=== PATIENT | female | born 1950 ===

== ENCOUNTER 2017-07-29 08:10 | Inpatient (IN) ==
[2017-07-23 23:52] LABS: Appearance,Urine HAZY; Bacteria,Urine MOD /hpf (0); Bilirubin,Urine NEG (NEG); Color,Urine YELLOW; Glucose,Urine (UA) NEGATIVE (NEG); Leukocyte Esterase,Urine 250 /uL (NEG); Mucus,Urine MOD /hpf (0); Nitrate,Urine NEG (NEG); Protein,Urine NEG (NEG); Specific Gravity,Urine 1.018 (1.000-1.035); Urine Blood NEG mg/dL (<0.03); Urine RBC 1 /hpf (0-1); Urine Squamous Epithelial Cell < 1 /hpf (0-4); Urine WBC 5 /hpf (0-4); Urobilinogen,Urine NEG (NEG)
[2017-07-24 02:08] LABS: Blood Urea Nitrogen 40 mg/dl (8-23)
[2017-07-24 11:43] LABS: Basophils # (Auto) 0 K/mcL (0.0-0.3); Basophils % (Auto) 0.5 % (0.0-2.0); Eosinophils # (Auto) 0.4 K/mcL (0.0-0.7); Eosinophils % (Auto) 5.5 % (0.0-7.0); Granulocytes % (Auto) 67.5 % (38.0-78.0); Lymphocytes # (Auto) 1.4 K/mcL (1.5-4.8); Lymphocytes % (Auto) 20.1 % (15.5-49.0); Mean Cell Volume 90.8 fL (80.0-100.0); Mean Corpuscular HGB Conc 33.5 g/dL (31.0-36.0); Mean Corpuscular Hemoglobin 30.4 pg (26.0-34.0); Monocytes # (Auto) 0.4 K/mcL (0.1-0.9); Monocytes % (Auto) 6.4 % (1.0-12.0); Platelet Count 260 K/mcL (140-440); RBC 3.98 M/mcL (4.00-5.20); Red Cell Distribution Width 14.4 % (11.5-14.5)
[~2017-07-29 08:10] MED LIST: ACETAMINOPHEN 500 MG TABLET PO SCH; CELECOXIB 200 MG CAPSULE PO SCH; KETOROLAC 30 MG, ROPIVACAINE HCL/PF 49.5 ML, EPINEPHrine 0.5 MG, 0.9 % SODIUM CHLORIDE ... IJ SCH; PREGABALIN 75 MG CAPSULE PO SCH; oxyCODONE 10 MG TAB.ER.12H PO SCH
[2017-07-29 10:17] LABS: Appearance,Urine CLEAR; Bilirubin,Urine NEG (NEG); Color,Urine STRAW; Glucose,Urine (UA) NEGATIVE (NEG); Leukocyte Esterase,Urine NEG /uL (NEG); Nitrate,Urine NEG (NEG); Protein,Urine NEG (NEG); Specific Gravity,Urine 1.014 (1.000-1.035); Urine Blood NEG mg/dL (<0.03); Urobilinogen,Urine NEG (NEG)
[2017-07-29] MEDS ORDERED: ceFAZolin 1 GM VIAL IV SCH (10:45)
[2017-07-29] MEDS ORDERED: ONDANSETRON 4 MG/2 ML VIAL IV ONE (11:39)
[2017-07-29] MEDS ORDERED: TRANEXAMIC ACID 1,000 MG/10 ML VIAL IV ONE (11:39)
[2017-07-29] MEDS ORDERED: MIDAZOLAM 5 MG/5 ML VIAL IV ONE (11:39)
[2017-07-29] MEDS ORDERED: KETAMINE 100 MG/ML ML IV ONE (11:39)
[2017-07-29] MEDS ORDERED: PROPOFOL 200 MG/20 ML VIAL IV ONE (11:39)
[2017-07-29] MEDS ORDERED: LIDOCAINE HCL/PF 100 MG/5 ML SYRINGE IV ONE (11:39)
[2017-07-29] MEDS ORDERED: ePHEDrine 50 MG/ML AMPUL IV ONE (11:39)
[2017-07-29] MEDS ORDERED: PHENYLEPHRINE 10 MG/ML VIAL IV ONE (11:39)
[2017-07-29] MEDS ORDERED: GLYCOPYRROLATE 0.2 MG/ML VIAL IV ONE (11:39)
[2017-07-29] MEDS ORDERED: GENTAMICIN SULFATE 800 MG/20 ML VIAL IR ONE (12:16)
[2017-07-29] MEDS ORDERED: ePHEDrine 50 MG/ML AMPUL IV PRN (12:37)
[2017-07-29] MEDS ORDERED: ONDANSETRON 4 MG/2 ML VIAL IV PRN (12:37)
[2017-07-29] MEDS ORDERED: IPRATROPIUM/ALBUTEROL 3 ML AMPUL.NEB NEB PRN (12:37)
[2017-07-29] MEDS ORDERED: MEPERIDINE 25 MG/ML SYRINGE IV PRN (12:37)
[2017-07-29] MEDS ORDERED: METHOCARBAMOL 1,000 MG/10 ML VIAL IV PRN (12:37)
[2017-07-29] MEDS ORDERED: PROMETHAZINE 25 MG/ML VIAL IV PRN (12:37)
[2017-07-29] MEDS ORDERED: LACTATED RINGERS 1,000 ML IV SCH (12:45)
[2017-07-29] MEDS ORDERED: TRANEXAMIC ACID 1,000 MG/10 ML VIAL IV SCH (13:24)
[2017-07-29] MEDS ORDERED: MAGNESIUM HYDROXIDE 30 ML ORAL.SUSP PO PRN (13:24)
[2017-07-29] MEDS ORDERED: BENZOCAINE/MENTHOL 1 LOZENGE PO PRN (13:24)
[2017-07-29] MEDS ORDERED: BISACODYL 10 MG SUPP.RECT PR PRN (13:24)
[2017-07-29] MEDS ORDERED: POLYETHYLENE GLYCOL 3350 17 GM PACKET PO PRN (13:24)
[2017-07-29] MEDS ORDERED: HYDROmorphone 2 MG/ML SYRINGE IV PRN (13:24)
[2017-07-29] MEDS ORDERED: FLEETS ADULT ENEMA PR PRN (13:24)
[2017-07-29] MEDS ORDERED: ACETAMINOPHEN 325 MG TABLET PO PRN (13:24)
[2017-07-29] MEDS: fentaNYL 100 MCG/2 ML VIAL IV PRN ×3 (14:02→14:07)
--- NOTE | 2017-07-29 14:03 | XRay Report ---
CLINICAL INFORMATION: Postsurgical follow-up TECHNIQUE: AP and lateral left knee COMPARISON: None. FINDINGS: Status post left total hemiarthroplasty. Femoral and tibial prosthetic complements are in anatomic positions. There is no surgical soft tissue and intra-articular gas IMPRESSION: Status post left total knee arthroplasty Interpreted and Authenticated by: Robert Bedoya 07/29/17
[2017-07-29] MEDS: 0.9 % SODIUM CHLORIDE 10 ML SYRINGE IV SCH ×2 (14:10→20:51)
[2017-07-29] MEDS: ONDANSETRON 4 MG/2 ML VIAL IV PRN ×2 (14:36→19:48)
[2017-07-29] MEDS: 0.45 % SODIUM CHLORIDE 1,000 ML IV SCH (14:37)
--- NOTE | 2017-07-29 14:45 | Brief Operative Note ---
Date of procedure: 07/29/17 Pre-op diagnosis: left knee djd severe Post-op diagnosis: same Procedure: left robotic tka Grafts/Implants: Yes Anesthesia: GETA Complications: none Complications Description: 07/29/17 14:44 none Surgeon: Rubio Potts Aircraft Part Assembler: Cayetano Sales Estimated blood loss (cc): 20 Tourniquet Time (Minutes): 45 Specimens Removed/Pathology: none sent Condition: stable Disposition: PACU
--- NOTE | 2017-07-29 15:13 | Operative Note ---
DATE OF OPERATION: 07/29/2017 PREOPERATIVE DIAGNOSIS: Left knee degenerative arthritis. POSTOPERATIVE DIAGNOSIS: Left knee degenerative arthritis. PROCEDURE: Left total knee arthroplasty using CAROLYN robot. SURGEON: Rubio Potts M.D. LEAD ACCOUNTANT: Cayetano Sales PA-C. ANESTHESIA: General LMA anesthesia. COMPLICATIONS: None. ESTIMATED BLOOD LOSS: Minimal. DESCRIPTION OF PROCEDURE: The patient was brought to the operating room and put to sleep with general LMA anesthesia. Once asleep, the patient had the left leg sterilely prepped and draped in the usual sterile fashion. Preop antibiotics given. Tranexamic acid given. After appropriate time out, we then proceeded with a midline incision. The leg was exsanguinated and tourniquet inflated to 250 pounds of pressure. Mid vastus approach was performed. Inspecting the knee showed severe arthritis of the medial compartment, lateral compartment and trochlear groove with bone exposed in all three areas With these findings, we proceeded with a total knee placing two pins above and below the knee. Placing the arrays, we centered the hip rotation, medial and lateral malleoli. Registered the pins intraarticularly and thirty points on the femur and tibia. We then balanced the knee with varus-valgus stress at 30 and 90 degrees. These were balanced using the robot and then once appropriately balanced, we then brought the robot in. This was registered. We mapped the cartilage anteriorly to help position, and we then made our distal femoral cut, our posterior femoral cut. Our chamfer cuts were then made and tibial cut, preserving the PCL. We then removed the bony fragments, placed a size 4 tibial baseplate which was set for rotation. This was punched into place. We prepared the femur. The femur was put into place, and we trialed an 11 mm poly. This seemed to balance very nicely with full range of motion. The patella was measured 23 mm in thickness. This was cut to 14 mm and a 332 mm patellar button was placed. A small chamfer cut made and all these components were cemented into place. We irrigated thoroughly and kept the knee still until all cement had been dried. Excess cement was then removed. We closed the mid vastus approach at 45 degrees with #1 Stratafix. The skin was closed with 2-0 Vicryl and adhesive closure. Sterile bandage applied. Tourniquet time was 45 minutes. RACHANA:teresa Job ID: [id number] Doc ID: [id number] Rubio Potts MD
[2017-07-29] MEDS: KETOROLAC 15 MG/ML VIAL IV SCH (17:38)
[2017-07-29] MEDS: ceFAZolin 1 GM VIAL IV SCH (19:15)
[2017-07-29] MEDS: ATORVASTATIN 20 MG TABLET PO SCH (20:50)
[2017-07-29] MEDS: SENNOSIDES 1 TABLET PO SCH (20:50)
[2017-07-29] MEDS: IMIPRAMINE 25 MG TABLET PO SCH (20:51)
[2017-07-29] MEDS: HYDROcodone/APAP 10/325MG TABLET PO PRN (20:51)
[2017-07-29] MEDS: DOCUSATE SODIUM 100 MG CAPSULE PO SCH (20:51)
[2017-07-29] MEDS: ASPIRIN 325 MG ENTERIC COATED TABLET PO SCH (20:51)
[2017-07-29] MEDS ORDERED: TEMAZEPAM 15 MG CAPSULE PO PRN (21:00)
[2017-07-30] MEDS: 0.45 % SODIUM CHLORIDE 1,000 ML IV SCH ×4 (00:40→21:03)
[2017-07-30] MEDS: KETOROLAC 15 MG/ML VIAL IV SCH ×5 (01:05→23:40)
[2017-07-30] MEDS: HYDROcodone/APAP 10/325MG TABLET PO PRN ×4 (01:46→14:22)
[2017-07-30] MEDS: ceFAZolin 1 GM VIAL IV SCH (03:24)
[2017-07-30] MEDS: 0.9 % SODIUM CHLORIDE 10 ML SYRINGE IV SCH ×3 (05:41→21:03)
--- NOTE | 2017-07-30 07:44 | Orthopedic Progress Note ---
Subjective Patient information: Note initiated : 07/30/17 at 7:43 am Service Date, if different from initiated Date: [] Patient: Christine Roth 67 y/o F admitted on 07/29/17 for Left Total Knee Arthroplasty Mike. Chief Complaint: [Pt is stable this morning on post operative day 1 without any significant concerns or complaints. Patients vital signs have remained stable. Patients dressing is dry and exhibits a grossly intact neurovascular and neuromotor exam. Patients 10 point ROS is otherwise negative. ] Objective Vital signs: Vital Signs Temp Pulse Resp BP Pulse Ox 07/30/17 07:25 96.9 F L 16 104/60 97 07/30/17 05:29 95 07/30/17 03:30 97.0 F 65 16 120/71 95 07/30/17 01:52 96 07/29/17 23:33 97.7 F 68 16 121/73 100 07/29/17 22:22 92 07/29/17 22:20 92 07/29/17 20:00 96.7 F L 69 14 135/81 100 07/29/17 17:15 123/75 94 07/29/17 16:40 95 07/29/17 16:15 133/73 96 07/29/17 15:45 122/72 94 07/29/17 15:15 113/69 96 07/29/17 15:00 110/67 99 07/29/17 14:45 113/67 98 07/29/17 14:30 96.9 F L 12 132/61 99 07/29/17 14:25 99 07/29/17 14:22 97.6 F 72 16 112/53 96 07/29/17 14:12 75 15 114/42 95 07/29/17 13:57 75 20 116/44 95 07/29/17 13:42 75 13 120/39 96 07/29/17 13:27 97.2 F 74 10 L 123/51 98 07/29/17 08:57 97.8 F 16 129/76 99 07/29/17 08:10 20 Intake and Output 07/29/17 07/30/17 07/30/17 21:59 05:59 13:59 Intake Total 890 / 890 1425 / 1425 Output Total 925 / 925 1100 / 1100 Balance -35 / -35 325 / 325 Intake: IV 1000 / 1000 Sodium Chloride 0.45% 1,000 ml 1000 / 1000 @ 100 mls/hr IV .Q10H FRED Rx#: [id number] Oral 690 / 690 425 / 425 IV - Manual Only 200 / 200 Output: Urine Catheter Amount 400 / 400 Void Amount 125 / 125 1100 / 1100 Emesis 400 / 400 Other: Meal Dinner Percent of Meal Consumed 75% Feeding Ability Independent # Voids 1 # Emeses 3 Weight 254 lb Intake & Output: Intake & Output 07/29/17 07/30/17 07/30/17 21:59 05:59 13:59 Intake Total 890 / 890 1425 / 1425 Output Total 925 / 925 1100 / 1100 Balance -35 / -35 325 / 325 Weight 254 lb Intake: IV 1000 / 1000 Sodium Chloride 0.45% 1,000 ml 1000 / 1000 @ 100 mls/hr IV .Q10H FRED Rx#: [id number] Oral 690 / 690 425 / 425 IV - Manual Only 200 / 200 Output: Urine Catheter Amount 400 / 400 Void Amount 125 / 125 1100 / 1100 Emesis 400 / 400 Other: Meal Dinner Percent of Meal Consumed 75% Feeding Ability Independent # Voids 1 # Emeses 3 Incision: Yes healing Incision clean and dry: Yes Dressing: Yes clean Weight bearing status: full Neurological exam IM: Yes motor sensory intact, Yes neurovascular intact Extremities exam IM: Yes Foot pink and warm, Yes neurovascular intact - Labs CBC & BMP: 07/30/17 04:55 07/23/17 15:58 Labs: Orthopedic Labs 07/23/17 15:58 PT 13.2 INR 1.0 APTT 29 07/30/17 07/23/17 04:55 15:58 Hgb 12.1 Hct 29.5 L 36.1 Assessment and Plan (1) Hx of total knee arthroplasty The patient has been educated regarding dressing care, Physical Therapy recommendations, home exercises, restrictions, and follow up appointments. The patient has had all necessary DME prescribed. The patient has remained stable during their hospital course. The patient was discharge with a stable exam. The patient has been educated regarding dressing care, Physical Therapy recommendations, home exercises, restrictions, and follow up appointments. The patient has had all necessary DME prescribed. The patient has remained stable during their hospital course. The patient was discharge with a stable exam. Leave Dermabond patch intact until followup Status: Acute
--- NOTE | 2017-07-30 07:46 | Discharge Summary ---
Ortho Discharge - TKA - Patient Instructions Diet: Regular Diet Activity: activity as tolerated, weight bearing as tolerated Total Knee Protocol: For Total Knee: Start ROM JERI with stationary bike or rocking chair. Work on gaining full extension of knee. Posterior dislocation precautions provided. Hip abductor strengthening and gait training instructions provided. Apply Cryocuff as instructed. Dressing Care: May shower in 2 days Patient Education: Total Knee Replacement (DC) - Problem Maintenance (1) Hx of total knee arthroplasty Status: Acute - Follow Up Plan Follow Up Appointments: Rubio Potts MD [Physician] - 08/13/17 1:40 pm Disposition: Home, Self-Care Prognosis: Good Rehab Potential: Good I certify that the patient requires SNF services: No Overall status at discharge: patient is progressing back to baseline - Orders For Discharge Prescriptions: Aspirin [Ecotrin] 325 mg PO BID #60 tab.ec Docusate Sodium [Colace] 100 mg PO BID #60 cap HYDROcodone/APAP 10/325MG [Bruno 10/325Mg] 1 - 2 tab PO Q4HP PRN #75 tab PRN Reason: Pain Level 3-6
[2017-07-30] MEDS: metFORMIN 500 MG TAB.XL.24H PO SCH (07:54)
[2017-07-30] MEDS: SPIRONOLACTONE 25 MG TABLET PO SCH (08:51)
[2017-07-30] MEDS: PIOGLITAZONE 15 MG TABLET PO SCH (08:51)
[2017-07-30] MEDS: DOCUSATE SODIUM 100 MG CAPSULE PO SCH ×2 (08:52→21:01)
[2017-07-30] MEDS: ASPIRIN 325 MG ENTERIC COATED TABLET PO SCH ×2 (08:52→21:01)
[2017-07-30] MEDS: LOSARTAN 50 MG TABLET PO SCH (08:57)
[2017-07-30] MEDS: amLODIPine 5 MG TABLET PO SCH (08:58)
[2017-07-30] MEDS: BISOPROLOL 5 MG TABLET PO SCH (08:58)
[2017-07-30] MEDS: CLOPIDOGREL 75 MG TABLET PO SCH (08:58)
[2017-07-30] MEDS: CHLORTHALIDONE 25 MG TABLET PO SCH (08:58)
[2017-07-30] MEDS: IMIPRAMINE 25 MG TABLET PO SCH (21:01)
[2017-07-30] MEDS: ATORVASTATIN 20 MG TABLET PO SCH (21:01)
[2017-07-30] MEDS: SENNOSIDES 1 TABLET PO SCH (21:01)
[2017-07-31] MEDS: 0.45 % SODIUM CHLORIDE 1,000 ML IV SCH (04:40)
[2017-07-31] MEDS: HYDROcodone/APAP 10/325MG TABLET PO PRN ×2 (05:11→10:02)
[2017-07-31] MEDS: KETOROLAC 15 MG/ML VIAL IV SCH (05:11)
[2017-07-31] MEDS: 0.9 % SODIUM CHLORIDE 10 ML SYRINGE IV SCH (05:15)
[2017-07-31] MEDS: metFORMIN 500 MG TAB.XL.24H PO SCH (07:27)
[2017-07-31] MEDS: DOCUSATE SODIUM 100 MG CAPSULE PO SCH (09:52)
[2017-07-31] MEDS: CLOPIDOGREL 75 MG TABLET PO SCH (09:52)
[2017-07-31] MEDS: amLODIPine 5 MG TABLET PO SCH (09:52)
[2017-07-31] MEDS: ASPIRIN 325 MG ENTERIC COATED TABLET PO SCH (09:52)
[2017-07-31] MEDS: SPIRONOLACTONE 25 MG TABLET PO SCH (09:52)
[2017-07-31] MEDS: CHLORTHALIDONE 25 MG TABLET PO SCH (09:52)
[2017-07-31] MEDS: LOSARTAN 50 MG TABLET PO SCH (09:52)
[2017-07-31] MEDS: BISOPROLOL 5 MG TABLET PO SCH (09:52)
[2017-07-31] MEDS: PIOGLITAZONE 15 MG TABLET PO SCH (09:55)
== END 2017-07-31 11:40 | disposition home or self-care (01) | DRG 470 ==
LOC: MEDSUR 08:10
PROVIDERS: ADMIT Orthopaedic Surgery; ATTEND Orthopaedic Surgery